=== PATIENT | female | born 1990 | race African-American/Black ===

== ENCOUNTER 2019-02-01 17:28 | Emergency (ER) | payer OTHER ==
[2019-02-01 18:06] VITALS: BP 153/84; PULSE 92; RESP 20; TEMP 98.4
--- NOTE | 2019-02-01 19:07 | XR ---
EXAMINATION TYPE: XR ankle complete RT DATE OF EXAM: 02/01/2019 COMPARISON: NONE HISTORY: Ankle pain TECHNIQUE: 3 views FINDINGS: There is nondisplaced oblique fracture of the distal fibula. Exam is limited by the cast. F racture appears acute. Ankle mortise is anatomic. IMPRESSION: Acute nondisplaced oblique fracture distal fibula.
[2019-02-01] MEDS ORDERED: HYDROcodone/APAP 7.5-325MG 1 EACH TAB PO ONE (19:55)
--- NOTE | 2019-02-01 20:58 | XR ---
EXAMINATION TYPE: XR femur RT DATE OF EXAM: 02/01/2019 COMPARISON: NONE HISTORY: Fall. Femur pain TECHNIQUE: 4 views FINDINGS: I see no fracture nor dislocation. Hip joint and knee joint appear intact. There is no sign of knee joint effusion. IMPRESSION: Negative right femur exam.
--- NOTE | 2019-02-01 20:59 | XR ---
EXAMINATION TYPE: XR Hip RT and AP Pelvis DATE OF EXAM: 02/01/2019 COMPARISON: NONE HISTORY: Fall. Pain. TECHNIQUE: A single AP view of the pelvis is obtained. Two views of the right hip are obtained. FINDINGS: The pelvic ring is intact. Proximal right femur and hip joint appear normal. Sacroiliac toi nts appear normal. There is no sign of hip dysplasia. IMPRESSION: Normal pelvis and right hip exam.
--- NOTE | 2019-02-01 21:17 | ED ---
General Adult HPI - General Chief complaint: Fall Stated complaint: fall/ankle pain & headache Time Seen by Provider: 02/01/19 19:34 Source: patient, RN notes reviewed, old records reviewed Mode of arrival: ambulatory Limitations: no limitations - History of Present Illness Initial comments: 28-year-old female patient with past history of right distal fibula fracture January 19 in [place] presents to ED after sustaining a fall showering. Patient reports that she fell while showering on her right hip region. Patient denies any trauma to head or neck. Patient states that she now has pain in her right hip, as well as has pain in her right ankle. Patient denies any other complaints. Patient states that she is not . Systemic: Pt denies fatigue, myalgia, fever/chills, rash. Pt denies weakness, night sweats, weight loss. Neuro: Pt denies headache, visual disturbances, syncope or pre-syncope. HEENT: Pt denies ocular discharge or irritation, otalgia, rhinorrhea, pharyngitis or notable lymphadenopathy. Cardiopulmonary: Pt denies chest pain, SOB, heart palpitations, dyspnea on exertion. Abdominal/GI: Pt denies abdominal pain, n/v/d. : Pt denies dysuria, burning w/ urination, frequency/urgency. Denies new onset urinary or bowel incontinence. MSK: Pt denies myalgia, loss of strength or function in extremities. Neuro: Pt denies new onset weakness, paresthesias. - Related Data Allergies Allergy/AdvReac Type Severity Reaction Status Date / Time No Known Allergies Allergy Verified 02/01/19 18:06 Review of Systems ROS Statement: Those systems with pertinent positive or pertinent negative responses have been documented in the HPI. ROS Other: All systems not noted in ROS Statement are negative. Past Medical History Past Medical History: No Reported History History of Any Multi-Drug Resistant Organisms: None Reported Past Surgical History: Section Past Psychological History: No Psychological Hx Reported Smoking Status: Current every day smoker Past Alcohol Use History: Occasional Past Drug Use History: Marijuana General Exam - General Exam Comments Initial Comments: Constitutional: NAD, AOX3, Pt has pleasant affect. HEENT: NC/AT, trachea midline, neck supple, no lymphadenopathy. Posterior pharynx non erythematous, without exudates. External ears appear normal, without discharge. Mucous membranes moist. Eyes PERRLA, EOM intact. There is no scleral icterus. No pallor noted. Cardiopulmonary: RRR, no murmurs, rubs or gallops, no JVD noted. Lungs CTAB in anterior and posterior chowdhury. No peripheral edema. Abdominal exam: Abdomen soft and non-distended. Abdomen non-tender to palpation in all 4 quadrants. Bowel sounds active in LLQ. No hepatosplenomegaly. No ecchymosis Neuro: CN II-XII grossly intact. No nuchal rigidity. MSK: Right ankle mildly edematous, no ecchymoses. Mildly tender to palpation at location of distal fibula. Distal pulses intact and equal. Patient able to wiggle toes. No proximal tibia-fibula tenderness. No tenderness femur. Patient has full active range of motion of right lower extremity. No posterior calf tenderness bilaterally, homans sign negative bilaterally. Posterior tibialis and radial pulse +2 bilaterally. Sensation intact in upper and lower extremities. Full active ROM in upper and lower extremities, 5/5 stregnth. Limitations: no limitations Course Vital Signs 02/01/19 18:03 Temperature 98.4 F Pulse Rate 92 Respiratory 20 Rate Blood Pressure 153/84 O2 Sat by Pulse 100 Oximetry Medical Decision Making - Medical Decision Making 28-year-old female patient with past history of right distal fibula fracture January 19 in [place] presents to ED after sustaining a fall showering. Patient reports that she fell while showering on her right hip region. Patient denies any trauma to head or neck. Patient states that she now has pain in her right hip, as well as has pain in her right ankle. Patient denies any other complaints. Patient states that she is not . Patient wasn't stable, afebrile. Physical exam displayed: Right ankle mildly edematous, no ecchymoses. Mildly tender to palpation at location of distal fibula. Distal pulses intact and equal. Patient able to wiggle toes. No proximal tibia-fibula tenderness. No tenderness femur. Patient has full active range of motion of right lower extremity. Plain film of right ankle redisplayed distal fibular fracture. Plain film of femur and hip/pelvis demonstrate acute pathology. Patient placed in posterior ankle splint. Patient neurovascular intact after splint placement. Patient continues using crutches. Patient given orthopedic consult for follow- up. Patient prescribed Tylenol 3 starter pack. Patient no driving home. Case discussed with Dr. Graham. Disposition Clinical Impression: Fall, Ankle fracture Disposition: HOME SELF-CARE Condition: Stable Instructions (If sedation given, give patient instructions): Ankle Fracture (ED), Fall Prevention (ED) Additional Instructions: Patient to adhere to previously discussed treatment plan and will take medication(s) as directed. Patient to follow up with PCP in 1-2 days. Patient to return to ED if symptoms do not improve. Please follow up with orthopedic surgeon tomorrow. Please return to ER if condition worsens in anyway. Is patient prescribed a controlled substance at d/c from ED?: No Referrals: None,Stated [Primary Care Provider] - 1-2 days Moses Horowitz DO [Medical Doctor] - 1-2 days
[2019-02-01] MEDS ORDERED: Acetaminophen-Codeine 300-30mg TAB PO STA (21:37)
[2019-02-01] MEDS ORDERED: ACET/COD 300 MG/30 MG STARTER PACK 6 TAB BTL PO STA (21:38)
== END 2019-02-01 21:50 | disposition home or self-care (01) ==
LOC: EC 17:28
DX: S82.434A Nondisplaced oblique fracture of shaft of right fibula, initial encounter for closed fracture (principal); F17.200 Nicotine dependence, unspecified, uncomplicated; W19.XXXA Unspecified fall, initial encounter; Y93.E1 Activity, personal bathing and showering; Y92.002 Bathroom of unspecified non-institutional (private) residence as the place of occurrence of the external cause
CPT/HCPCS: 29515; 73502; 99284